=== PATIENT | female | born 1950 | race Caucasian/White ===

== ENCOUNTER 2022-10-22 17:57 | Observation (INO) | payer BC, MEDICARE ==
[2022-10-22] MEDS ORDERED: Nitrostat 0.4 MG (ED) SL ONE ×2 (18:12→18:21)
[2022-10-22] MEDS ORDERED: BABY ASPIRIN 81 MG CHEW PO ONE (18:12)
--- NOTE | 2022-10-22 18:14 | ERPHSYRPT ---
<ALLEY SEN - Last Filed: 10/22/22 22:02> - History of Present Illness Time Seen by Provider: 10/22/22 18:14 Allergies/Adverse Reactions: cefuroxime [From Ceftin] Allergy (Verified 10/22/22 18:00) metoclopramide [From Reglan] Allergy (Verified 10/22/22 18:00) Penicillins Allergy (Verified 10/22/22 18:00) pantoprazole [From Protonix] Adverse Reaction (Verified 10/22/22 18:45) STATES CAUSES VISUAL CHANGES Home Medications: Calcium Carb/Vitamin D 500 mg* [Calcium 500MG W/Vit D Tablet] 1 tab PO DAILY 10/22/22 [History] Famotidine 20 mg [Pepcid 20 MG] 1 tab PO BID 10/22/22 [History] Magnesium Oxide [Magnesium] 400 mg PO DAILY 10/22/22 [History] Multivitamin 1 tab PO DAILY 10/22/22 [History] Thyroid,Pork [[place] Thyroid] 30 mg PO DAILY 10/22/22 [History] Vitamin A/Vit C/Zinc/Propolis [Zinc 15 mg Lozenges] 15 mg PO DAILY 10/22/22 [History] - Progress Progress Note: 10/22/22 21:57 Patient is checked out to me at shift change from Dr. Hernandes with pending lab work and imaging. Patient presented with substernal chest discomfort/pressure, was given nitro on presentation in the ER with no significant relief. EKG is sinus rhythm with no ST elevation and negative initial troponin and D-dimers. Chest x-ray showed some right upper lobe opacity but no consolidation. Patient does have history of URI symptoms and was given Doxy for that last week. Does have history of acid reflux and is given Pepcid, on reevaluation she is feeling better. Patient does not have any cardiac work-up done in the recent past. She is still having some pressure and discomfort. She does not want nitro anymore. She does not want any pain medications. I have discussed lab work and imaging with patient and family and recommended observation admission to trend cardiac enzymes and further testing if needed. They understand and agree with it. I have discussed with Dr. Zuniga, reviewed history, work-up and current management, agreed with observation admission, agreed with holding off on antibiotics for right upper lobe opacity and if needed will be started later.. Discussed with Dr.: James Will see patient in: hospital (observation) Counseled pt/family regarding: lab results, diagnosis, rad results Medical Desision Making - Independent Historian Additional History obtained from: Spouse - Discussion of managment Care discussed with:: on-call "doc" Reviewed:: Test results, Need for additional workup Agreed on:: Treatment plan, place in obs Will see patient: in hospital - Diagnostic Testing Radiological Interpretation: Reviewed by me, Teleradiologist Report - Risk of complications The pt has a high risk of morbidity or mortality based on: Decision regarding hospitilization or escalation of hosp level of care - Departure Departure Disposition: Observation Clinical Impression: Chest pain, rule out acute myocardial infarction Condition: Stable Critical Care Time: No <CELSA HERNANDES - Last Filed: 10/24/22 22:55> - History of Present Illness Historian: patient Exam Limitations: no limitations Physician History: 72yo F presents to the ED w/ sudden onset CP while walking down the driveway [employer]. The pain was substernal w/ radiation to her left shoulder, back and teeth. She described the pain as a sharp, pressure that was 10/10 in severity and it lasted for almost 30 minutes. Pain was worse w/ exertion and improved w/ rest eventually. Patient has a hx of afib, not on anticoagulation. Patient reports dealing w/ upper respiratory illness over the past 2 weeks for which she had been on Doxycycline. She has a hx of HTN, but denies DM. No previous hx of CAD. Timing/Duration: today, sudden Activities at Onset: activity (Walking up driveway) Quality: pressure, sharpness Location: substernal Chest Pain Radiation: jaw, arm, back Severity of Pain-Max: severe Severity of Pain-Current: mild Modifying Factors: Improves With: nothing. Worsens With: exertion, movement, nitroglycerin, palpation Associated Symptoms: back pain, No nausea, No vomiting, No palpitations, No abdominal pain, No shortness of breath, No hurts to breathe, No diaphoresis, No fever Prior Chest Pain/Cardiac Workup: no prior chest pain, no prior cardiac workup Nitro Today/Relief: 0.4 mg x 1, provided by ED, no relief Aspirin Treatment Today: 81 mg x 4, provided by ED - Review of Systems Constitutional: No Symptoms Eyes: No Symptoms Ears, Nose, & Throat: No Symptoms Respiratory: No Symptoms Cardiac: Chest Pain, Edema, No Palpitations, No Syncope, No Orthopnea, No PND Abdominal/Gastrointestinal: No Symptoms Genitourinary Symptoms: No Symptoms Musculoskeletal: No Symptoms Skin: No Symptoms Neurological: No Symptoms Psychological: No Symptoms Endocrine: No Symptoms Hematologic/Lymphatic: No Symptoms Immunological/Allergic: No Symptoms All Other Systems: Reviewed and Negative - Nursing Vital Signs Nursing Vital Signs: Initial Vital Signs Pulse Rate 78 10/22/22 18:00 Respiratory Rate 17 10/22/22 18:00 Blood Pressure 127/85 10/22/22 18:00 O2 Sat by Pulse Oximetry 96 10/22/22 18:00 Pain Scale Pain Intensity 4 - Physical Exam General Appearance: no apparent distress, anxiety, obese Eye Exam: eyes nml inspection Ears, Nose, Throat Exam: normal ENT inspection Neck Exam: normal inspection Respiratory Exam: normal breath sounds, chest tenderness, lungs clear, airway intact, No respiratory distress Cardiovascular Exam: regular rate/rhythm, normal heart sounds, capillary refill <2 sec, edema (trace b/l LE ) Gastrointestinal/Abdomen Exam: soft, normal bowel sounds, No tenderness, No distention, No guarding, No rebound Back Exam: normal inspection, No CVA tenderness, No vertebral tenderness Extremity Exam: normal inspection, swelling, No tenderness Neurologic Exam: alert, oriented x 3, cooperative Skin Exam: normal color, warm, dry SpO2 Interpretation: normal O2 Delivery: Room Air - Course Nursing assessment & vital signs reviewed: Yes EKG Interpreted by Me: RATE (85), Sinus Rhythm, NORMAL AXIS, NORMAL INTERVALS, NORMAL QRS, NORMAL ST-T Ordered Tests: Medication Summary Discontinued Medications Generic Name Dose Route Start Last Admin Trade Name Freq PRN Reason Stop Dose Admin Acetaminophen 650 mg 10/22/22 22:34 10/23/22 07:45 Acetaminophen 325 Mg Tablet PO 11/21/22 22:33 650 mg Q4H PRN PRN Administration PAIN AND/OR FEVER Albuterol Sulfate 1 puff 10/22/22 23:43 10/23/22 13:51 Albuterol Common Canister Inhaler IH 11/21/22 23:42 1 puff Q4H PRN PRN Administration SHORTNESS OF BREATH/WHEEZING Albuterol Sulfate 2.5 mg 10/22/22 23:59 Albuterol Sulfate 2.5 Mg/3 Ml [facility] 11/21/22 23:58 Q4H PRN PRN SHORTNESS OF BREATH/WHEEZING Albuterol/Ipratropium 3 ml 10/22/22 22:34 Ipratropium/Albuterol Sulfate 3 Ml Ampul.Neb 10/22/22 23:59 Q4HPRN PRN SHORTNESS OF BREATH/WHEEZING Aspirin 324 mg 10/22/22 18:12 10/22/22 18:23 Aspirin 81 Mg Tab.Chew PO 10/22/22 18:13 324 mg STAT ONE Administration Aspirin Confirm 10/22/22 18:21 Aspirin 81 Mg Tab.Chew Administered 10/22/22 18:22 Dose 324 mg .ROUTE .STK-MED ONE Calcium Carbonate 1 tab 10/23/22 11:00 10/23/22 11:24 Calcium Carbonate 500 Mg/Vitamin D 1 Tab Tablet PO 11/22/22 10:59 1 tab DAILY KAVEH Administration Famotidine 20 mg 10/22/22 19:59 10/22/22 20:12 Famotidine 20 Mg/1 Vial IV 10/22/22 20:00 20 mg STAT ONE Administration Famotidine Confirm 10/22/22 20:11 Famotidine 20 Mg/1 Vial Administered 10/22/22 20:12 Dose 20 mg IV .STK-MED ONE Famotidine 20 mg 10/22/22 22:34 10/23/22 10:49 Famotidine 20 Mg/1 Vial IV 11/21/22 22:33 20 mg Q12HT KAVEH Administration Famotidine 20 mg 10/23/22 11:00 Famotidine 20 Mg Tablet PO 11/22/22 10:59 BID KAVEH Famotidine 20 mg 10/23/22 22:00 Famotidine 20 Mg Tablet PO 11/22/22 21:59 BID KAVEH Lorazepam 1 mg 10/22/22 22:10 10/22/22 22:16 Lorazepam 2 Mg/1 Ml 2 Mg Vial IV 10/22/22 22:11 1 mg STAT ONE Administration Lorazepam Confirm 10/22/22 22:15 Lorazepam 2 Mg/1 Ml 2 Mg Vial Administered 10/22/22 22:16 Dose 2 mg .ROUTE .STK-MED ONE Magnesium Hydroxide 45 ml 10/22/22 20:00 10/22/22 20:11 Mag Hydrx/Alum Hyd/Simeth/Lido 45 Ml Bottle PO 10/22/22 20:01 Not Given STAT ONE Magnesium Oxide 400 mg 10/23/22 11:00 10/23/22 11:24 Magnesium Oxide 400 Mg Tablet PO 11/22/22 10:59 400 mg DAILY KAVEH Administration Miscellaneous Information 1 each 10/23/22 11:00 Medication Intervention 1 Each Each 11/22/22 10:59 .RN TO CHECK KAVEH Multivitamins Therapeutic 1 tab 10/23/22 11:00 10/23/22 11:24 Multivitamins,Therapeutic 1 Tab Tab PO 11/22/22 10:59 1 tab DAILY KAVEH Administration Nitroglycerin 0.4 mg 10/22/22 18:12 10/22/22 18:23 Nitroglycerin 0.4 Mg (Ed) 0.4 Mg Tab.Subl SL 10/22/22 18:13 0.4 mg STAT ONE Administration Nitroglycerin Confirm 10/22/22 18:21 Nitroglycerin 0.4 Mg (Ed) 0.4 Mg Tab.Subl Administered 10/22/22 18:22 Dose 0.4 mg SL .STK-MED ONE Nitroglycerin 0.5 gm 10/22/22 22:05 10/22/22 22:08 Nitroglycerin 1 Gm Packet TOP 10/22/22 22:06 0.5 gm STAT ONE Administration Nitroglycerin Confirm 10/22/22 22:06 Nitroglycerin 1 Gm Packet Administered 10/22/22 22:07 Dose 1 gm .ROUTE .STK-MED ONE Non-Formulary Drug : 1 each 10/23/22 11:00 10/23/22 11:24 Thyroid 30 Mg PO 11/22/22 10:59 1 each DAILY KAVEH Administration Ondansetron HCl 4 mg 10/22/22 22:34 10/23/22 07:40 Ondansetron Hcl 4 Mg/2 Ml Vial IV 11/21/22 22:33 4 mg Q6H PRN PRN Administration NAUSEA/VOMITING Pantoprazole Sodium 40 mg 10/22/22 18:37 10/22/22 18:44 Pantoprazole 40 Mg Vial IV 10/22/22 18:38 Not Given STAT ONE Pantoprazole Sodium Confirm 10/22/22 18:39 Pantoprazole 40 Mg Vial Administered 10/22/22 18:40 Dose 40 mg IV .K-MED ONE Lab/Rad Data: Laboratory Result Diagrams 10/22/22 18:23 10/22/22 18:23 Laboratory Results 10/22/22 10/22/22 10/22/22 Range/Units 22:22 18:23 18:23 WBC (4.0-10.5) x10^3/uL RBC (4.1-5.4) x10^6/uL Hgb (12.0-16.0) g/dL Hct (35-47) % MCV (78-100) fL MCH (26-32) pg MCHC (32-36) g/dL RDW (11.5-14.0) % Plt Count (150-450) x10^3/uL MPV (7.5-11.0) fL Gran % (36.0-66.0) % Immature Gran % (Auto) (0.00-0.4) % Nucleat RBC Rel Count (0.00-0.1) % Eos # (Auto) (0-0.5) x10^3/uL Immature Gran # (Auto) (0.00-0.03) x10^3u/L Absolute Lymphs (auto) (1.0-4.6) x10^3/uL Absolute Monos (auto) (0.0-1.3) x10^3/uL Absolute Nucleated RBC (0.00-0.01) x10^3u/L Lymphocytes % (24.0-44.0) % Monocytes % (0.0-12.0) % Eosinophils % (0.00-5.0) % Basophils % (0.0-0.4) % Absolute Granulocytes (1.4-6.9) x10^3/uL Basophils # (0-0.4) x10^3/uL D-Dimer (0.0-0.50) mg/L Sodium 139 (137-145) mmol/L Potassium 4.4 (3.5-5.1) mmol/L Chloride 103 (98-107) mmol/L Carbon Dioxide 26 (22-30) mmol/L Anion Gap 15.3 H (5-15) MEQ/L BUN 15 (7-17) mg/dL Creatinine 0.62 (0.52-1.04) mg/dL Estimated GFR > 60.0 ML/MIN Glucose 112 H (74-106) mg/dL Calcium 8.7 (8.4-10.2) mg/dL Total Bilirubin 0.50 (0.2-1.3) mg/dL AST 39 H (14-36) U/L ALT 25 (0-35) U/L Alkaline Phosphatase 97 (38-126) U/L Troponin I < 0.012 < 0.012 (0.000-0.034) ng/mL Serum Total Protein 8.1 (6.3-8.2) g/dL Albumin 4.3 (3.5-5.0) g/dL 10/22/22 10/22/22 Range/Units 18:23 17:00 WBC 6.9 (4.0-10.5) x10^3/uL RBC 4.20 (4.1-5.4) x10^6/uL Hgb 12.9 (12.0-16.0) g/dL Hct 38.5 (35-47) % MCV 91.7 (78-100) fL MCH 30.7 (26-32) pg MCHC 33.5 (32-36) g/dL RDW 14.1 H (11.5-14.0) % Plt Count 283 (150-450) x10^3/uL MPV 8.7 (7.5-11.0) fL Gran % 46.4 (36.0-66.0) % Immature Gran % (Auto) 0.3 (0.00-0.4) % Nucleat RBC Rel Count 0.0 (0.00-0.1) % Eos # (Auto) 0.13 (0-0.5) x10^3/uL Immature Gran # (Auto) 0.02 (0.00-0.03) x10^3u/L Absolute Lymphs (auto) 3.01 (1.0-4.6) x10^3/uL Absolute Monos (auto) 0.50 (0.0-1.3) x10^3/uL Absolute Nucleated RBC 0.00 (0.00-0.01) x10^3u/L Lymphocytes % 43.6 (24.0-44.0) % Monocytes % 7.2 (0.0-12.0) % Eosinophils % 1.9 (0.00-5.0) % Basophils % 0.6 (0.0-0.4) % Absolute Granulocytes 3.20 (1.4-6.9) x10^3/uL Basophils # 0.04 (0-0.4) x10^3/uL D-Dimer 0.50 (0.0-0.50) mg/L Sodium (137-145) mmol/L Potassium (3.5-5.1) mmol/L Chloride (98-107) mmol/L Carbon Dioxide (22-30) mmol/L Anion Gap (5-15) MEQ/L BUN (7-17) mg/dL Creatinine (0.52-1.04) mg/dL Estimated GFR ML/MIN Glucose (74-106) mg/dL Calcium (8.4-10.2) mg/dL Total Bilirubin (0.2-1.3) mg/dL AST (14-36) U/L ALT (0-35) U/L Alkaline Phosphatase (38-126) U/L Troponin I (0.000-0.034) ng/mL Serum Total Protein (6.3-8.2) g/dL Albumin (3.5-5.0) g/dL - Progress Progress: unchanged Air Movement: good Progress Note: Care transferred to Dr. Sen at 1900. Blood Culture(s) Obtained: No Antibiotics given: No
[2022-10-22] MEDS ORDERED: BABY ASPIRIN 81 MG CHEW ONE (18:21)
[2022-10-22 18:25] LABS: BASOPHIL % 0.6 % (0.0-0.4); Basophil (Absolute #) 0.04 x10^3/uL (0-0.4); Eosinophil % 1.9 % (0.00-5.0); Eosinophil (Absolute #) 0.13 x10^3/uL (0-0.5); Hematocrit 38.5 % (35-47); Hemoglobin 12.9 g/dL (12.0-16.0); IMMATURE GRAN # 0.02 x10^3u/L (0.00-0.03); IMMATURE GRAN % 0.3 % (0.00-0.4); Lymphocyte (Absolute #) 3.01 x10^3/uL (1.0-4.6); Lymphocytes % 43.6 % (24.0-44.0); Mean Cell Volume 91.7 fL (78-100); Mean Corpuscular Hemoglobin 30.7 pg (26-32); Mean Corpuscular Hgb Concent. 33.5 g/dL (32-36); Mean Platelet Volume 8.7 fL (7.5-11.0); Monocytes % 7.2 % (0.0-12.0); Neutrophil % 46.4 % (36.0-66.0); Platelet Count 283 x10^3/uL (150-450); Red Cell Distribution Width 14.1 % (11.5-14.0); White Blood Count 6.9 x10^3/uL (4.0-10.5)
[2022-10-22 18:37] LABS: ALBUMIN 4.3 g/dL (3.5-5.0); ALKALINE PHOSPHATASE 97 U/L (38-126); ANION GAP 15.3 MEQ/L (5-15); BLOOD UREA NITROGEN 15 mg/dL (7-17); CHLORIDE 103 mmol/L (98-107); Calcium 8.7 mg/dL (8.4-10.2); Carbon Dioxide 26 mmol/L (22-30); Creatinine 1 0.62 mg/dL (0.52-1.04); EST GLOMERULAR FILTRATION RATE > 60.0 ML/MIN; Glucose 112 mg/dL (74-106); Potassium 4.4 mmol/L (3.5-5.1); SGOT/AST 39 U/L (14-36); SGPT/ALT 25 U/L (0-35); SODIUM 139 mmol/L (137-145); Total Protein 8.1 g/dL (6.3-8.2)
[2022-10-22] MEDS ORDERED: PROTONIX 40 MG IV IV ONE (18:39)
[2022-10-22] MEDS: PROTONIX 40 MG IV IV ONE ×2 (18:40→18:44)
--- NOTE | 2022-10-22 19:23 | XRAY ---
Indication: Chest pain. Comparison: None Portable chest demonstrates hazy right upper lung airspace opacity and a few tiny bilateral calcified granulomas. Remaining heart and lungs unremarkable with incidental tortuous descending aorta. Bony thorax intact with osteopenia, mild degenerative changes, and mild dextroscoliosis.
[2022-10-22] MEDS ORDERED: Pepcid 20 MG VIAL IV ONE ×2 (19:59→20:11)
[2022-10-22] MEDS ORDERED: GI COCKTAIL 45 ML (Maalox/Lidocaine) PO ONE (20:00)
[2022-10-22] MEDS ORDERED: NITRO-BID 2% UD PACKETS TOP ONE (22:05)
[2022-10-22] MEDS ORDERED: NITRO-BID 2% UD PACKETS ONE (22:06)
[2022-10-22] MEDS ORDERED: Ativan 2 MG/1 ML VIAL IV ONE (22:10)
[2022-10-22] MEDS ORDERED: Ativan 2 MG/1 ML VIAL ONE (22:15)
[2022-10-22] MEDS ORDERED: TYLENOL 325 MG PO PRN (22:34)
[2022-10-22] MEDS ORDERED: DUONEB 0.5-3 MG/3 ml Neb IH PRN (22:34)
[2022-10-22] MEDS ORDERED: Zofran 4 MG/2 ML VIAL IV PRN (22:34)
[2022-10-22] MEDS: Pepcid 20 MG VIAL IV SCH (23:43)
[2022-10-22] MEDS: VENTOLIN COMMON CANISTER IH PRN (23:44)
[2022-10-22] MEDS ORDERED: PROVENTIL 2.5 MG/3 ML NEB IH PRN (23:59)
[2022-10-23 02:13] LABS: Absolute Neutrophil Ct (ANC) 2.72 x10^3/uL (1.4-6.9); BASOPHIL % 0.5 % (0.0-0.4); Basophil (Absolute #) 0.03 x10^3/uL (0-0.4); Eosinophil % 2.6 % (0.00-5.0); Eosinophil (Absolute #) 0.15 x10^3/uL (0-0.5); Hematocrit 34.3 % (35-47); Hemoglobin 11.4 g/dL (12.0-16.0); IMMATURE GRAN # 0.02 x10^3u/L (0.00-0.03); IMMATURE GRAN % 0.3 % (0.00-0.4); Lymphocyte (Absolute #) 2.51 x10^3/uL (1.0-4.6); Lymphocytes % 43.3 % (24.0-44.0); Mean Cell Volume 92.2 fL (78-100); Mean Corpuscular Hemoglobin 30.6 pg (26-32); Mean Corpuscular Hgb Concent. 33.2 g/dL (32-36); Mean Platelet Volume 8.5 fL (7.5-11.0); Monocyte (Absolute #) 0.37 x10^3/uL (0.0-1.3); Monocytes % 6.4 % (0.0-12.0); Neutrophil % 46.9 % (36.0-66.0); Platelet Count 220 x10^3/uL (150-450); Red Blood Count 3.72 x10^6/uL (4.1-5.4); Red Cell Distribution Width 14.2 % (11.5-14.0); White Blood Count 5.8 x10^3/uL (4.0-10.5)
[2022-10-23 02:27] LABS: ALBUMIN 3.6 g/dL (3.5-5.0); ALKALINE PHOSPHATASE 72 U/L (38-126); ANION GAP 12.4 MEQ/L (5-15); BLOOD UREA NITROGEN 12 mg/dL (7-17); CHLORIDE 104 mmol/L (98-107); Calcium 8.7 mg/dL (8.4-10.2); Carbon Dioxide 26 mmol/L (22-30); Creatinine 1 0.56 mg/dL (0.52-1.04); EST GLOMERULAR FILTRATION RATE > 60.0 ML/MIN; Glucose 130 mg/dL (74-106); Potassium 3.8 mmol/L (3.5-5.1); SGOT/AST 31 U/L (14-36); SGPT/ALT 22 U/L (0-35); SODIUM 138 mmol/L (137-145); Total Protein 6.7 g/dL (6.3-8.2)
[2022-10-23] MEDS: VENTOLIN COMMON CANISTER IH PRN ×2 (08:11→13:51)
--- NOTE | 2022-10-23 10:25 | PCM.SSS ---
History of Present Illness - Chief Complaint Chief Complaint: CP R/O [place]; URI History of Present Illness: is a 72 year old female with chest pain, cough and shortness of breath. She's had a cough for the last week, was treated with doxycycline, last night developed pain in her chest radiating to her left shoulder and teeth, pain was sharp and intense, she has no pain this morning. no hx of cad, has had a fib in the past but not persistent. - Review of Systems Constitutional: No Fever, No Chills Respiratory: Cough Cardiac: Chest Pain Abdominal/Gastrointestinal: No Abdominal Pain, No Nausea, No Vomiting, No Diarrhea Genitourinary Symptoms: No Dysuria Skin: No Rash All Other Systems: Reviewed and Negative Medications & Allergies Home Medications: Home Medication List Calcium Carb/Vitamin D 500 mg* [Calcium 500MG W/Vit D Tablet] 1 tab PO DAILY 10/22/22 [History Confirmed 10/22/22] Famotidine 20 mg [Pepcid 20 MG] 1 tab PO BID 10/22/22 [History Confirmed 10/22/22] Magnesium Oxide [Magnesium] 400 mg PO DAILY 10/22/22 [History Confirmed 0 10/22/22] Multivitamin 1 tab PO DAILY 10/22/22 [History Confirmed 10/22/22] Thyroid,Pork [Apex Thyroid] 30 mg PO DAILY 10/22/22 [History Confirmed 10/22/22] Vitamin A/Vit C/Zinc/Propolis [Zinc 15 mg Lozenges] 15 mg PO DAILY 10/22/22 [History Confirmed 10/22/22] Albuterol Sulfate [Albuterol Sulfate Hfa] 1 puff IH Q4HPRN PRN #1 10/23/22 [Rx] Albuterol Sulfate [Albuterol Sulfate Hfa] 2 puffs IH Q4-6HPRN PRN #1 unit 10/23/22 [Rx] Methylprednisolone Packet [Medrol Dosepack] 4 mg PO UD #30 packet 10/23/22 [Rx] Omeprazole 40 mg PO DAILY #30 cap 10/23/22 [Rx] levoFLOXacin [Levofloxacin] 500 mg PO DAILY #7 tablet 10/23/22 [Rx] Allergies/Adverse Reactions: Allergies Allergy/AdvReac Type Severity Reaction Status Date / Time cefuroxime [From Ceftin] Allergy Verified 10/22/22 18:00 metoclopramide [From Reglan] Allergy Verified 10/22/22 18:00 Penicillins Allergy Verified 10/22/22 18:00 pantoprazole [From Protonix] AdvReac Verified 10/22/22 18:45 - Past Medical History Past Medical History: Yes Neurological History: No Pertinent History ENT History: No Pertinent History Cardiac History: Arrhythmia Respiratory History: Pneumonia Endocrine Medical History: Hypoglycemia Musculoskelatal History: Fractures, Other GI Medical History: Diverticulitis, Gallbladder Disease, Other History: Other Pyscho-Social History: Anxiety, Depression Reproductive Disorders: Endometriosis, Other Comment: UTI's, kidney stone. Hystorectomy, Osteopenia. Fractures: Cervical, T- 5, Sacral. GI: Constipation - Female History Are you now?: No - Past Surgical History Past Surgical History: Yes Neuro Surgical History: No Pertinent History Cardiac History: No Pertinent History Respiratory Surgery: No Pertinent History GI Surgical History: Cholecystectomy Genitourinary Surgical Hx: No Pertinent History Musculskeletal Surgical Hx: No Pertinent History Female Surgical History: Hysterectomy, Lumpectomy Other Surgical History: nasal surgery - Social History Smoking Status: Former smoker Exposure to second hand smoke: No Alcohol: None Drug Use: none - Physical Exam Vital Signs: Vital Signs - 24 hr Temp Pulse Resp BP BP Pulse Ox 10/23/22 08:13 66 18 96 10/23/22 08:00 97.8 F 72 18 130/62 91 L 10/23/22 07:25 70 20 96 10/23/22 04:00 97.9 F 72 18 109/64 95 10/22/22 23:44 74 19 96 10/22/22 23:01 98.2 F 74 20 157/77 97 10/22/22 22:00 68 19 140/82 96 10/22/22 21:50 73 18 125/83 98 10/22/22 21:40 71 22 126/74 97 10/22/22 21:30 71 20 124/85 96 10/22/22 21:20 71 21 135/75 95 10/22/22 21:10 72 22 131/81 96 10/22/22 21:00 78 14 126/74 126/74 96 10/22/22 20:50 71 18 135/79 96 10/22/22 20:40 70 17 138/80 95 10/22/22 20:30 78 16 132/76 98 10/22/22 20:20 71 17 130/82 96 10/22/22 20:10 69 19 164/81 95 10/22/22 20:02 72 19 138/87 94 L 10/22/22 20:00 72 19 138/87 94 L 10/22/22 19:50 72 15 139/78 97 10/22/22 19:40 72 16 119/75 94 L 10/22/22 19:30 74 18 134/73 94 L 10/22/22 19:20 78 20 118/71 93 L 10/22/22 19:10 70 13 118/71 97 10/22/22 19:00 75 14 117/76 119/75 94 L 10/22/22 18:50 79 16 125/72 96 10/22/22 18:40 76 14 118/69 96 10/22/22 18:30 82 13 112/74 94 L 10/22/22 18:26 75 21 119/77 97 10/22/22 18:03 97.6 F 86 18 127/85 98 10/22/22 18:00 78 17 127/85 96 General Appearance: no apparent distress Neurologic Exam: alert, oriented x 3 Respiratory Exam: rhonchi, wheezing, No respiratory distress Cardiovascular Exam: regular rate/rhythm, normal heart sounds, normal peripheral pulses Gastrointestinal/Abdomen Exam: soft, normal bowel sounds, No tenderness, No mass Extremity Exam: normal inspection, normal range of motion, pelvis stable Skin Exam: normal color, warm, dry, No rash Results - Labs Lab/Micro Results: Lab Results-Last 24 Hours 10/22/22 10/22/22 10/22/22 Range/Units 17:00 18:23 18:23 WBC 6.9 (4.0-10.5) x10^3/uL RBC 4.20 (4.1-5.4) x10^6/uL Hgb 12.9 (12.0-16.0) g/dL Hct 38.5 (35-47) % MCV 91.7 (78-100) fL MCH 30.7 (26-32) pg MCHC 33.5 (32-36) g/dL RDW 14.1 H (11.5-14.0) % Plt Count 283 (150-450) x10^3/uL MPV 8.7 (7.5-11.0) fL Gran % 46.4 (36.0-66.0) % Immature Gran % (Auto) 0.3 (0.00-0.4) % Nucleat RBC Rel Count 0.0 (0.00-0.1) % Eos # (Auto) 0.13 (0-0.5) x10^3/uL Immature Gran # (Auto) 0.02 (0.00-0.03) x10^3u/L Absolute Lymphs (auto) 3.01 (1.0-4.6) x10^3/uL Absolute Monos (auto) 0.50 (0.0-1.3) x10^3/uL Absolute Nucleated RBC 0.00 (0.00-0.01) x10^3u/L Lymphocytes % 43.6 (24.0-44.0) % Monocytes % 7.2 (0.0-12.0) % Eosinophils % 1.9 (0.00-5.0) % Basophils % 0.6 (0.0-0.4) % Absolute Granulocytes 3.20 (1.4-6.9) x10^3/uL Basophils # 0.04 (0-0.4) x10^3/uL D-Dimer 0.50 (0.0-0.50) mg/L Sodium 139 (137-145) mmol/L Potassium 4.4 (3.5-5.1) mmol/L Chloride 103 (98-107) mmol/L Carbon Dioxide 26 (22-30) mmol/L Anion Gap 15.3 H (5-15) MEQ/L BUN 15 (7-17) mg/dL Creatinine 0.62 (0.52-1.04) mg/dL Estimated GFR > 60.0 ML/MIN Glucose 112 H (74-106) mg/dL Calcium 8.7 (8.4-10.2) mg/dL Total Bilirubin 0.50 (0.2-1.3) mg/dL AST 39 H (14-36) U/L ALT 25 (0-35) U/L Alkaline Phosphatase 97 (38-126) U/L Troponin I (0.000-0.034) ng/mL Serum Total Protein 8.1 (6.3-8.2) g/dL Albumin 4.3 (3.5-5.0) g/dL 10/22/22 10/22/22 10/23/22 Range/Units 18:23 22:22 02:12 WBC (4.0-10.5) x10^3/uL RBC (4.1-5.4) x10^6/uL Hgb (12.0-16.0) g/dL Hct (35-47) % MCV (78-100) fL MCH (26-32) pg MCHC (32-36) g/dL RDW (11.5-14.0) % Plt Count (150-450) x10^3/uL MPV (7.5-11.0) fL Gran % (36.0-66.0) % Immature Gran % (Auto) (0.00-0.4) % Nucleat RBC Rel Count (0.00-0.1) % Eos # (Auto) (0-0.5) x10^3/uL Immature Gran # (Auto) (0.00-0.03) x10^3u/L Absolute Lymphs (auto) (1.0-4.6) x10^3/uL Absolute Monos (auto) (0.0-1.3) x10^3/uL Absolute Nucleated RBC (0.00-0.01) x10^3u/L Lymphocytes % (24.0-44.0) % Monocytes % (0.0-12.0) % Eosinophils % (0.00-5.0) % Basophils % (0.0-0.4) % Absolute Granulocytes (1.4-6.9) x10^3/uL Basophils # (0-0.4) x10^3/uL D-Dimer (0.0-0.50) mg/L Sodium (137-145) mmol/L Potassium (3.5-5.1) mmol/L Chloride (98-107) mmol/L Carbon Dioxide (22-30) mmol/L Anion Gap (5-15) MEQ/L BUN (7-17) mg/dL Creatinine (0.52-1.04) mg/dL Estimated GFR ML/MIN Glucose (74-106) mg/dL Calcium (8.4-10.2) mg/dL Total Bilirubin (0.2-1.3) mg/dL AST (14-36) U/L ALT (0-35) U/L Alkaline Phosphatase (38-126) U/L Troponin I < 0.012 < 0.012 < 0.012 (0.000-0.034) ng/mL Serum Total Protein (6.3-8.2) g/dL Albumin (3.5-5.0) g/dL 10/23/22 10/23/22 Range/Units 02:12 02:12 WBC 5.8 (4.0-10.5) x10^3/uL RBC 3.72 L (4.1-5.4) x10^6/uL Hgb 11.4 L (12.0-16.0) g/dL Hct 34.3 L (35-47) % MCV 92.2 (78-100) fL MCH 30.6 (26-32) pg MCHC 33.2 (32-36) g/dL RDW 14.2 H (11.5-14.0) % Plt Count 220 (150-450) x10^3/uL MPV 8.5 (7.5-11.0) fL Gran % 46.9 (36.0-66.0) % Immature Gran % (Auto) 0.3 (0.00-0.4) % Nucleat RBC Rel Count 0.0 (0.00-0.1) % Eos # (Auto) 0.15 (0-0.5) x10^3/uL Immature Gran # (Auto) 0.02 (0.00-0.03) x10^3u/L Absolute Lymphs (auto) 2.51 (1.0-4.6) x10^3/uL Absolute Monos (auto) 0.37 (0.0-1.3) x10^3/uL Absolute Nucleated RBC 0.00 (0.00-0.01) x10^3u/L Lymphocytes % 43.3 (24.0-44.0) % Monocytes % 6.4 (0.0-12.0) % Eosinophils % 2.6 (0.00-5.0) % Basophils % 0.5 (0.0-0.4) % Absolute Granulocytes 2.72 (1.4-6.9) x10^3/uL Basophils # 0.03 (0-0.4) x10^3/uL D-Dimer (0.0-0.50) mg/L Sodium 138 (137-145) mmol/L Potassium 3.8 (3.5-5.1) mmol/L Chloride 104 (98-107) mmol/L Carbon Dioxide 26 (22-30) mmol/L Anion Gap 12.4 (5-15) MEQ/L BUN 12 (7-17) mg/dL Creatinine 0.56 (0.52-1.04) mg/dL Estimated GFR > 60.0 ML/MIN Glucose 130 H (74-106) mg/dL Calcium 8.7 (8.4-10.2) mg/dL Total Bilirubin 0.30 (0.2-1.3) mg/dL AST 31 (14-36) U/L ALT 22 (0-35) U/L Alkaline Phosphatase 72 (38-126) U/L Troponin I (0.000-0.034) ng/mL Serum Total Protein 6.7 (6.3-8.2) g/dL Albumin 3.6 (3.5-5.0) g/dL - Radiology Impressions Radiology Exams & Impressions: Radiology Procedures Category Date Time Status CHEST 1 VIEW (PORTABLE) Stat Exams 10/22/22 18:13 Completed - Other Procedures and Tests Respiratory Therapy 10/22/22 23:54 Respiratory Therapy Assessment DAILY Assessment/Plan (1) Chest pain, rule out acute myocardial infarction Current Visit: Yes Status: Acute Assessment & Plan: non cardiac, [place] ruled out Code(s): R07.9 - CHEST PAIN, UNSPECIFIED (2) Acute bronchitis with bronchospasm Current Visit: Yes Status: Acute Assessment & Plan: home on po medrol emile and levaquin Code(s): J20.9 - ACUTE BRONCHITIS, UNSPECIFIED Hospital Summary - Vitals & Intake/Output Vital Signs: Vital Signs Temperature 97.8 F 10/23/22 08:00 Pulse Rate 66 10/23/22 08:13 Respiratory Rate 18 10/23/22 08:13 Blood Pressure 130/62 10/23/22 08:00 O2 Sat by Pulse Oximetry 96 10/23/22 08:13 Intake & Output: Intake & Output 10/20/22 10/21/22 10/22/22 10/23/22 11:59 11:59 11:59 11:59 Intake Total 100 Balance 100 Weight 92.9 kg - Lab Result Diagrams: 10/23/22 02:12 10/23/22 02:12 Lab Results-Last 24 Hrs: Lab Results-Last 24 Hours 10/22/22 10/22/22 10/22/22 Range/Units 17:00 18:23 18:23 WBC 6.9 (4.0-10.5) x10^3/uL RBC 4.20 (4.1-5.4) x10^6/uL Hgb 12.9 (12.0-16.0) g/dL Hct 38.5 (35-47) % MCV 91.7 (78-100) fL MCH 30.7 (26-32) pg MCHC 33.5 (32-36) g/dL RDW 14.1 H (11.5-14.0) % Plt Count 283 (150-450) x10^3/uL MPV 8.7 (7.5-11.0) fL Gran % 46.4 (36.0-66.0) % Immature Gran % (Auto) 0.3 (0.00-0.4) % Nucleat RBC Rel Count 0.0 (0.00-0.1) % Eos # (Auto) 0.13 (0-0.5) x10^3/uL Immature Gran # (Auto) 0.02 (0.00-0.03) x10^3u/L Absolute Lymphs (auto) 3.01 (1.0-4.6) x10^3/uL Absolute Monos (auto) 0.50 (0.0-1.3) x10^3/uL Absolute Nucleated RBC 0.00 (0.00-0.01) x10^3u/L Lymphocytes % 43.6 (24.0-44.0) % Monocytes % 7.2 (0.0-12.0) % Eosinophils % 1.9 (0.00-5.0) % Basophils % 0.6 (0.0-0.4) % Absolute Granulocytes 3.20 (1.4-6.9) x10^3/uL Basophils # 0.04 (0-0.4) x10^3/uL D-Dimer 0.50 (0.0-0.50) mg/L Sodium 139 (137-145) mmol/L Potassium 4.4 (3.5-5.1) mmol/L Chloride 103 (98-107) mmol/L Carbon Dioxide 26 (22-30) mmol/L Anion Gap 15.3 H (5-15) MEQ/L BUN 15 (7-17) mg/dL Creatinine 0.62 (0.52-1.04) mg/dL Estimated GFR > 60.0 ML/MIN Glucose 112 H (74-106) mg/dL Calcium 8.7 (8.4-10.2) mg/dL Total Bilirubin 0.50 (0.2-1.3) mg/dL AST 39 H (14-36) U/L ALT 25 (0-35) U/L Alkaline Phosphatase 97 (38-126) U/L Troponin I (0.000-0.034) ng/mL Serum Total Protein 8.1 (6.3-8.2) g/dL Albumin 4.3 (3.5-5.0) g/dL 10/22/22 10/22/22 10/23/22 Range/Units 18:23 22:22 02:12 WBC (4.0-10.5) x10^3/uL RBC (4.1-5.4) x10^6/uL Hgb (12.0-16.0) g/dL Hct (35-47) % MCV (78-100) fL MCH (26-32) pg MCHC (32-36) g/dL RDW (11.5-14.0) % Plt Count (150-450) x10^3/uL MPV (7.5-11.0) fL Gran % (36.0-66.0) % Immature Gran % (Auto) (0.00-0.4) % Nucleat RBC Rel Count (0.00-0.1) % Eos # (Auto) (0-0.5) x10^3/uL Immature Gran # (Auto) (0.00-0.03) x10^3u/L Absolute Lymphs (auto) (1.0-4.6) x10^3/uL Absolute Monos (auto) (0.0-1.3) x10^3/uL Absolute Nucleated RBC (0.00-0.01) x10^3u/L Lymphocytes % (24.0-44.0) % Monocytes % (0.0-12.0) % Eosinophils % (0.00-5.0) % Basophils % (0.0-0.4) % Absolute Granulocytes (1.4-6.9) x10^3/uL Basophils # (0-0.4) x10^3/uL D-Dimer (0.0-0.50) mg/L Sodium (137-145) mmol/L Potassium (3.5-5.1) mmol/L Chloride (98-107) mmol/L Carbon Dioxide (22-30) mmol/L Anion Gap (5-15) MEQ/L BUN (7-17) mg/dL Creatinine (0.52-1.04) mg/dL Estimated GFR ML/MIN Glucose (74-106) mg/dL Calcium (8.4-10.2) mg/dL Total Bilirubin (0.2-1.3) mg/dL AST (14-36) U/L ALT (0-35) U/L Alkaline Phosphatase (38-126) U/L Troponin I < 0.012 < 0.012 < 0.012 (0.000-0.034) ng/mL Serum Total Protein (6.3-8.2) g/dL Albumin (3.5-5.0) g/dL 10/23/22 10/23/22 Range/Units 02:12 02:12 WBC 5.8 (4.0-10.5) x10^3/uL RBC 3.72 L (4.1-5.4) x10^6/uL Hgb 11.4 L (12.0-16.0) g/dL Hct 34.3 L (35-47) % MCV 92.2 (78-100) fL MCH 30.6 (26-32) pg MCHC 33.2 (32-36) g/dL RDW 14.2 H (11.5-14.0) % Plt Count 220 (150-450) x10^3/uL MPV 8.5 (7.5-11.0) fL Gran % 46.9 (36.0-66.0) % Immature Gran % (Auto) 0.3 (0.00-0.4) % Nucleat RBC Rel Count 0.0 (0.00-0.1) % Eos # (Auto) 0.15 (0-0.5) x10^3/uL Immature Gran # (Auto) 0.02 (0.00-0.03) x10^3u/L Absolute Lymphs (auto) 2.51 (1.0-4.6) x10^3/uL Absolute Monos (auto) 0.37 (0.0-1.3) x10^3/uL Absolute Nucleated RBC 0.00 (0.00-0.01) x10^3u/L Lymphocytes % 43.3 (24.0-44.0) % Monocytes % 6.4 (0.0-12.0) % Eosinophils % 2.6 (0.00-5.0) % Basophils % 0.5 (0.0-0.4) % Absolute Granulocytes 2.72 (1.4-6.9) x10^3/uL Basophils # 0.03 (0-0.4) x10^3/uL D-Dimer (0.0-0.50) mg/L Sodium 138 (137-145) mmol/L Potassium 3.8 (3.5-5.1) mmol/L Chloride 104 (98-107) mmol/L Carbon Dioxide 26 (22-30) mmol/L Anion Gap 12.4 (5-15) MEQ/L BUN 12 (7-17) mg/dL Creatinine 0.56 (0.52-1.04) mg/dL Estimated GFR > 60.0 ML/MIN Glucose 130 H (74-106) mg/dL Calcium 8.7 (8.4-10.2) mg/dL Total Bilirubin 0.30 (0.2-1.3) mg/dL AST 31 (14-36) U/L ALT 22 (0-35) U/L Alkaline Phosphatase 72 (38-126) U/L Troponin I (0.000-0.034) ng/mL Serum Total Protein 6.7 (6.3-8.2) g/dL Albumin 3.6 (3.5-5.0) g/dL - Radiology Exams Ordered Rad Exams-Entire Visit: Radiology Procedures Category Date Time Status CHEST 1 VIEW (PORTABLE) Stat Exams 10/22/22 18:13 Completed - Procedures and Test Procedures and Tests throughout Hospitalization: Therapy Orders & Screens 10/22/22 23:54 Respiratory Therapy Assessment DAILY Comment: Diagnosis: CP R/O [place]; URI - Discharge Disposition: Home, Self-Care Condition: Stable Prescriptions: New levoFLOXacin [Levofloxacin] 500 mg PO DAILY #7 tablet Methylprednisolone Packet [Medrol Dosepack] 4 mg PO UD #30 packet Omeprazole 40 mg PO DAILY #30 cap Albuterol Sulfate [Albuterol Sulfate Hfa] 2 puffs IH Q4-6HPRN PRN #1 unit PRN Reason: Cough Continue Famotidine 20 mg [Pepcid 20 MG] 1 tab PO BID Thyroid,Pork [Apex Thyroid] 30 mg PO DAILY Multivitamin 1 tab PO DAILY Magnesium Oxide [Magnesium] 400 mg PO DAILY Calcium Carb/Vitamin D 500 mg* [Calcium 500MG W/Vit D Tablet] 1 tab PO DAILY Vitamin A/Vit C/Zinc/Propolis [Zinc 15 mg Lozenges] 15 mg PO DAILY Albuterol Sulfate [Albuterol Sulfate Hfa] 1 puff IH Q4HPRN PRN #1 PRN Reason: Shortness Of Breath Follow up with: Provider,Unknown [Primary Care Provider] -
[2022-10-23] MEDS: Pepcid 20 MG VIAL IV SCH (10:49)
[2022-10-23] MEDS ORDERED: Pepcid 20 MG PO SCH ×2 (11:00→22:00)
[2022-10-23] MEDS ORDERED: NON-FORMULARY ITEM PO SCH (11:00)
[2022-10-23] MEDS ORDERED: Calcium 500MG W/Vit D Tablet PO SCH (11:00)
[2022-10-23] MEDS ORDERED: THERAGRAN MULTIVITAMIN PO SCH (11:00)
[2022-10-23] MEDS ORDERED: MAG-OX 400 PO SCH (11:00)
[2022-10-23] MEDS ORDERED: MEDICATION INTERVENTION MC SCH (11:00)
[2022-10-23 13:51] VITALS: BP 118/61
[2022-10-23 13:55] VITALS: PULSE 74; O2SAT 97
[2022-10-24] MEDS ORDERED: VITAMIN A PO SCH (10:00)
[2022-10-24] MEDS ORDERED: NON-FORMULARY ITEM (Multivitamin [Multivitamin] 1 EACH Tablet) PO SCH (10:00)
[2022-10-24] MEDS ORDERED: THYROID PORK 30 MG PO SCH (10:00)
[2022-10-24] MEDS ORDERED: ZINC PO SCH (10:00)
[2022-10-24] MEDS ORDERED: PROPOLIS PO SCH (10:00)
[2022-10-24] MEDS ORDERED: VIT C PO SCH (10:00)
== END 2022-10-23 14:09 | disposition home or self-care (01) ==
LOC: ED 17:57 → MED SURG 22:26
PROVIDERS: ADMIT Family Medicine; ATTEND Family Medicine
DX: R07.9 Chest pain, unspecified (principal); J20.9 Acute bronchitis, unspecified; Z79.899 Other long term (current) drug therapy; Z20.828 Contact with and (suspected) exposure to other viral communicable diseases
CPT/HCPCS: 36000; 36415; 71045; 80053; 84484; 85025; 85379; 93005; 93041; 93268; 94640; 94760; 96374; 96375; 99285; G0378; J2060; J2405; A9270-GY